=== PATIENT | female | born 1940 | race Caucasian/White ===

== ENCOUNTER → 2022-06-19 11:28 | Outpatient (BNVA) | payer MEDICARE, SELFPAY | PROVIDERS: Visit Provider Registered Nurse Neonatal Intensive Care | DX: N39.0 Urinary tract infection, site not specified (principal) | CPT/HCPCS: 81003; 87077; 87086; 87184 ==

== ENCOUNTER 2022-09-24 09:18 | Outpatient (CLI) | payer MEDICARE, SELFPAY ==
[2022-09-24 10:41] LABS: Albumin Level 3.8 g/dL (3.5-5.2); Blood Urea Nitrogen 14 mg/dL (8-23); Calcium 9.2 mg/dL (8.5-10.5); Carbon Dioxide 28 mmol/L (22-29); Chloride 97 mmol/L (98-107); Glucose 201 mg/dL (65-115); Phosphorus 3.1 mg/dL (2.5-4.5); Sodium 135 mmol/L (136-145)
[2022-09-24 10:43] LABS: Anion Gap 14.2 (5-19); Potassium 4.2 mmol/L (3.5-5.1)
== END 2022-09-24 09:19 | disposition home or self-care (01) ==
PROVIDERS: PCP Physician Assistant; Visit Provider Hospitalist
DX: Z01.89 Encounter for other specified special examinations (principal)
CPT/HCPCS: 36415; 80069

== ENCOUNTER 2022-09-27 07:28 | Emergency (ER) | payer MEDICARE, SELFPAY ==
[2022-09-27 07:40] VITALS: BP 129/85; PULSE 84; RESP 14; TEMP 37; O2SAT 96; BMI 29.9
--- NOTE | 2022-09-27 07:43 | CT_ITS ---
WS: [id number] CT HEAD NONCONTRAST HISTORY: fall; GATICA, nauseous TECHNIQUE: Contiguous axial imaging performed through the brain in 2.5 mm imaging. Bone and soft tiss ue windows. Sagittal and coronal reformats reviewed. All CT scans at [facility] use at least one of these dose optimization techniques: automated exposure control; mA and/or kV adjustment per pa tient size (includes targeted exams where dose is matched to clinical indication); or iterative recon struction. DLP: 1036.82 mGy.cm COMPARISON: None available. No acute intracranial hemorrhage, midline shift or mass effect. Moderate atrophy and severe small vessel ischemic disease. 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 Bilateral lacunar infarcts and cerebellar infarcts. There is a prior lacunar infarct in the RI GHT newton radiata superimposed on extensive small vessel disease. Ventricles: Normal size with no hydrocephalus. No inferior displacement of the cerebellar tonsils. Paranasal sinuses: As visualized are clear. Mastoid air cells: Well pneumatized. Calvarium and scalp: Skull is intact with no soft tissue edema or swelling. Debris in the external auditory canals. CT/CT head wo con* [id number] IMPRESSION: 1. No acute intracranial hemorrhage or edema. 2. Marked atrophy with severe small vessel ischemic disease and numerous bilat eral lacunar infarcts. 3. Large RIGHT temporal lobe infarct. 4. No skull fracture.
--- NOTE | 2022-09-27 07:43 | W.ED.FALL ---
HPI - Fall General: Chief Complaint: Fall Stated Complaint: Head pain, fell and hit head two days ago Time Seen by Provider: 09/27/22 07:29 Source: patient and family (daughter) Mode of arrival: wheelchair Limitations: no limitations History of Present Illness: Patient is an 82-year-old female presents to ED today along with her daughter for evaluation of a head injury during a fall that occurred late Saturday evening/early Saturday morning. 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 She normally walks with a walker as her gait is unsteady and shuffled. She states because of this patient does frequently fall. Daughter states patient got her foot caught on her walker and fell and struck her head. No LOC. Daughter states since fall patient has complained of a headache and now is feeling nauseous which is what prompted their visit now. Daughter is an RN and wanted to make sure patient did not have an intracranial bleed. No change in mental status per daughter. No new neurological deficits. 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 Denies neck/back pain. States she struck her left knee but has full ROM and is walking normally on it. Patient is on Plavix. 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); Denies: change in vision, blurry vision, photophobia, floaters or seeing flashes Card: Denies: chest pain, palpitations, irregular heart rhythm, edema, swelling of feet/ankles, lightheadedness, syncope, pre-syncope, dyspnea on exertion, orthopnea, leg pain with exertion or acrocyanosis Resp: Denies: dyspnea GI: Reports: nausea and other (dry heaving); Denies: abdominal pain, vomiting, hematemesis or change in bowel habits : Denies: flank pain or dysuria Musc: Denies: neck pain, back pain, extremity pain, extremity swelling, joint pain or joint swelling Skin/Breast: Denies: rash Neuro: Reports: frequent falls and other (chronic L sided neglect from previous CVA); Denies: headache(s), lack of coordination, dizziness, vertigo, confusion, behavioral changes, difficulty communicating thoughts or seizure-like activity Physical Exam Const: COMMON NORMALS: no acute distress, average body habitus, patient oriented x3, no limitations, healthy appearing, alert and well nourished GENERAL APPEARANCE: cooperative ORIENTATION/CONSCIOUSNESS: Yes awake, Yes oriented to person, Yes oriented to place and Yes oriented to time HENMT: COMMON NORMALS: normocephalic, atraumatic and TM's normal bilaterally HEAD & SCALP: normal to inspection, normocephalic and atraumatic FACE & SINUS: normal facial exam TYMPANIC MEMBRANE: TM's normal bilaterally MOUTH: other (no intraoral injuries noted) Eye: COMMON NORMALS: Equal, round and reactive pupils present and EOMs intact bilaterally GENERAL EYE: appearance normal, both eyes and all related structures and normal light reflex PUPIL: Yes Equal, round and reactive pupils present DIRECT OPHTHALMOSCOPY: Yes normal light reflex Neck/C-Spine: COMMON NORMALS: full ROM GENERAL: Yes normal visual inspection CERVICAL SPINE: Yes cervical ROM normal, No pain with cervical ROM, No Cervical spine tenderness, No step off deformity and No Paracervical muscle tenderness Chest: COMMONS NORMALS: normal inspection of the chest and normal palpation of entire chest wall Resp: COMMON NORMALS: normal respiratory effort and clear to auscultation bilaterally AUSCULTATION: clear to auscultation bilaterally Cardio: COMMON NORMALS: regular rate and regular rhythm RATE: regular rate RHYTHM: regular rhythm GI: COMMON NORMALS: Normal to inspection, nondistended, normoactive bowel sounds present, Soft to palpation, non-tender, No hepatosplenomegaly present and no masses INSPECTION: Yes normal to inspection and No abdominal wall ecchymosis AUSCULTATION: Yes normoactive bowel sounds PALPATION: Yes Soft to palpation and Yes No hepatosplenomegaly present : COMMON NORMALS: Yes no CVA tenderness BLADDER/KIDNEY EXAM: Yes no CVA tenderness Back/Pelvis: COMMON NORMALS: no CVA tenderness, thoracic and lumbar spine normal to inspection, no thoracic nor lumbar tenderness and thoraco-lumbar ROM normal Extremity: COMMON NORMALS: normal to inspection and full ROM GENERAL: Yes normal exam except as noted LEFT LOWER EXTREMITY: Yes knee joint (scabbed abrasions and mild swelling but full painless ROM) Neuro: MAXINE COMA SCALE: document GCS findings Maxine coma scale eye opening: Spontaneous Cyril coma scale verbal response: Orientated Cyril coma scale motor response: Obey commands Maxine coma scale total score: 15 COMMON NORMALS: patient oriented x3 SENSORIUM/ORIENTATION: Yes alert, Yes oriented to person, Yes oriented to place and Yes oriented to time SPEECH: speech normal GAIT: Yes Shuffling gait present (chronic per daughter ) Skin: TRAUMA: no lacerations Course Vital Signs: Vital signs: Vital Signs Temperature 98.6 F 09/27/22 07:40 Pulse Rate 62 09/27/22 08:13 Respiratory Rate 14 09/27/22 07:40 Blood Pressure 136/75 09/27/22 08:13 Pulse Oximetry 95 09/27/22 08:13 Oxygen Delivery Me thod Room Air 09/27/22 08:13 MDM - Fall Medical Decision Making CT head negative for acute intracranial pathology. Patient is stable for DC from an ED standpoint at this time. No indication for any further evaluation/work up based on mechanical fall complaint. Return to ED precautions given. Discharge Plan Discharge Patient Disposition: Home Clinical Impression: Minor head injury without loss of consciousness Qualifiers: Encounter type: initial encounter Qualified Code(s): S09.90XA - Unspecified injury of head, initial encounter Condition: Stable Prescriptions: No Action clopidogrel [Plavix] 75 mg tablet 75 mg PO DAILY Metopirone 250 mg capsule 250 mg PO DAILY lisinopril 5 mg tablet 5 mg PO DAILY amitriptyline 10 mg tablet 10 mg PO DAILY cholecalciferol (vitamin D3) 10 mcg (400 unit) capsule 10 mcg PO DAILY calcium carbonate [Antacid (calcium carbonate)] 200 mg calcium (500 mg) tablet,chewable 200 mg PO BID sulfamethoxazole-trimethoprim [Bactrim DS] 800-160 mg tablet 1 tab PO BID 5 Days Qty: 10 0RF Discharge Orders: Discharge ED (Routine); Ordered 09/27/22 Ordered By: Sakshi Cotton Referrals: Clifton Coates PA [Primary Care Provider] - Patient Instructions: Head Injury (DC) Coding Level of Care Code ED [employer]in[employer] for Chg Fwd
[2022-09-27 08:13] VITALS: BP 136/75; PULSE 62; O2SAT 95
== END 2022-09-27 09:29 | disposition home or self-care (01) ==
PROVIDERS: Emergency Provider Physician Assistant; PCP Physician Assistant
DX: S09.8XXA Other specified injuries of head, initial encounter (principal); Z79.02 Long term (current) use of antithrombotics/antiplatelets; Z86.73 Personal history of transient ischemic attack (TIA), and cerebral infarction without residual deficits; W01.0XXA Fall on same level from slipping, tripping and stumbling without subsequent striking against object, initial encounter
CPT/HCPCS: 70450; 99284